=== PATIENT | male | born 1990 | race Caucasian/White ===

== ENCOUNTER 2018-03-03 08:29 | Emergency (ER) | payer OTHER ==
[~2018-03-03] VITALS: Ht 175.3 cm; Wt 77.1 kg
[2018-03-03] MEDS ORDERED: PROAIR HFA8.5 GM (08:43)
[2018-03-03] MEDS ORDERED: SINGULAIR4 M1 (08:43)
[2018-03-03] MEDS ORDERED: SYMBICORT 16010.2 GM (08:43)
== END 2018-03-03 13:08 | disposition home or self-care (01) ==
LOC: ER 08:29
DX: R06.02 Shortness of breath (principal)